=== PATIENT | female | born 1980 | race Caucasian/White ===

== ENCOUNTER 2018-06-02 02:14 | Emergency (ER) | payer OTHER, SELFPAY ==
--- NOTE | 2018-06-02 03:11 | EDPHYS ---
Physician Documentation [facility] Name: Suzi Arrington Age: 38 yrs Sex: Female : 1980 Arrival Date: 06/02/2018 Time: 02:17 Bed 18 Private MD: ED Physician Lam Slater HPI: 06/02 03:07 This 38 yrs old Female presents to ER via Ambulatory with complaints of Ear pkl Pain, Sinus Pain. 03:07 The patient presents with pain, that is acute. The complaints affect the left ear. pkl Onset: The symptoms/episode began/occurred 1 month(s) ago. Associated signs and symptoms: Pertinent positives: sinus trouble. 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 - Social history:: Smoking status: Patient/guardian denies using tobacco. - Ebola Screening: : Patient negative for fever greater than or equal to 101.5 degrees Fahrenheit, and additional compatible Ebola Virus Disease symptoms. ROS: 03:07 Eyes: Negative for injury, pain, redness, and discharge. pkl 03:07 ENT: Positive for ear pain, sinus congestion. 03:07 Neck: Negative for stiffness. 03:07 Cardiovascular: Negative for chest pain. 03:07 Respiratory: Negative for shortness of breath. 03:07 Abdomen/GI: Negative for abdominal pain, nausea, vomiting, and diarrhea. 03:07 Back: Negative for acute changes. 03:07 : Negative for urinary symptoms. 03:07 MS/extremity: Negative for acute changes. 03:07 Skin: Negative for rash. 03:07 Neuro: Negative for altered mental status. Exam: 03:07 Head/Face: Normocephalic, atraumatic. Eyes: Pupils equal round and reactive to light, pkl extra-ocular motions intact. Lids and lashes normal. Conjunctiva and sclera are non-icteric and not injected. Cornea within normal limits. Periorbital areas with no swelling, redness, or edema. 03:07 ENT: TM's: erythema, that is mild, on the left. 03:07 Neck: Exam negative for nuchal rigidity. 03:07 Chest/axilla: Exam negative for acute changes. 03:07 Cardiovascular: Rate: normal, Rhythm: regular. 03:07 Respiratory: the patient does not display signs of respiratory distress. 03:07 Abdomen/GI: Exam negative for acute changes. 03:07 Back: Exam negative for acute changes. 03:07 : Exam negative for acute changes. 03:07 Musculoskeletal/extremity: Exam is negative for acute changes. 03:07 Skin: Exam negative for rash. 03:07 Neuro: Orientation: is normal, Mentation: is normal, Cranial nerves: grossly normal, Motor: is normal. Vital Signs: 02:37 BP 141 / 99; Pulse 99; Resp 17 S; Temp 98.4(O); Pulse Ox 100% on R/A; Weight 132.9 kg jd3 (R); Height 5 ft. 5 in. (165.10 cm) (R); Pain 8/10; 02:37 Body Mass Index 48.76 (132.90 kg, 165.10 cm) jd3 MDM: 02:53 Patient medically screened. pkl 03:07 Data reviewed: vital signs, nurses notes. pkl Administered Medications: 03:12 Drug: UltRAM 50 mg Route: PO; jd3 03:20 Follow up: Response: No adverse reaction jd3 Disposition: 06/02/18 03:11 Discharged to Home. Impression: Left otitis media. Sinusitis. - Condition is Stable. - Prescriptions for Ultram 50 mg Oral Tablet - take 1 tablet by ORAL route every 8 hours As needed; 20 tablet. Cipro 500 mg Oral Tablet - take 1 tablet by ORAL route every 12 hours for 7 days; 14 tablet. - Work release form, Medication Reconciliation Form, Thank You Letter, Antibiotic Education, Prescription Opioid Use form. - Follow up: Private Physician; When: 2 - 3 days; Reason: Re-evaluation by your physician. - Problem is new. - Symptoms are unchanged. Signatures: Lam Slater MD MD pkl Jase Powell RN RN jd3 Corrections: (The following items were deleted from the chart) 03:20 03:11 06/02/2018 03:11 Discharged to Home. Impression: Left otitis media. Sinusitis. jd3 Condition is Stable. Forms are Medication Reconciliation Form, Thank You Letter, Antibiotic Education, Prescription Opioid Use. Follow up: Private Physician; When: 2 - 3 days; Reason: Re-evaluation by your physician. Problem is new. Symptoms are unchanged. pkl
--- NOTE | 2018-06-02 03:11 | ER ---
Nurse's Notes [facility] Name: Suzi Arrington Age: 38 yrs Sex: Female : 1980 Arrival Date: 06/02/2018 Time: 02:17 Bed 18 Private MD: Diagnosis: Left otitis media. Sinusitis Presentation: 06/02 02:33 Presenting complaint: Patient states: "I'm not sure if I have a sinus infection or an jd3 ear infection, but my left ear and my sinuses have been hurting, and I have had a stuffy nose making it hard to breath sometimes.". Transition of care: patient was not received from another setting of care. Onset of symptoms was June 02, 2018. Risk Assessment: Do you want to hurt yourself or someone else? Patient reports no desire to harm self or others. Initial Sepsis Screen: Does the patient meet any 2 criteria? No. Patient's initial sepsis screen is negative. Does the patient have a suspected source of infection? No. Patient's initial sepsis screen is negative. Care prior to arrival: None. 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 - Social history:: Smoking status: Patient/guardian denies using tobacco. - Ebola Screening: : Patient negative for fever greater than or equal to 101.5 degrees Fahrenheit, and additional compatible Ebola Virus Disease symptoms. Screenin:41 Abuse screen: Denies threats or abuse. Nutritional screening: No deficits noted. jd3 Tuberculosis screening: No symptoms or risk factors identified. Fall Risk Ambulatory Aid- None/Bed Rest/Nurse Assist (0 pts). Gait- Normal/Bed Rest/Wheelchair (0 pts) Mental Status- Oriented to own ability (0 pts). Total Cosme Fall Scale indicates No Risk (0-24 pts). Assessment: 02:39 General: Appears in no apparent distress. uncomfortable, Behavior is calm, cooperative, jd3 appropriate for age. Pain: Complains of pain in nose and left ear Quality of pain is described as aching. Neuro: Level of Consciousness is awake, alert, obeys commands, Oriented to person, place, time, situation. Cardiovascular: Capillary refill < 3 seconds Patient's skin is warm and dry. Respiratory: Airway is patent Respiratory effort is even, unlabored, Respiratory pattern is regular, symmetrical. GI: Abdomen is round non-distended, Patient currently denies abdominal pain. : No signs and/or symptoms were reported regarding the genitourinary system. EENT: Reports nasal congestion pain in left ear. Derm: Skin is intact, Skin is dry, Skin is normal, Skin temperature is warm. Musculoskeletal: Circulation, motion, and sensation intact. Range of motion: intact in all extremities. 03:19 Reassessment: Patient appears in no apparent distress at this time. Patient and/or jd3 family updated on plan of care and expected duration. Pain level reassessed. Patient is alert, oriented x 3, equal unlabored respirations, skin warm/dry/pink. Vital Signs: 02:37 BP 141 / 99; Pulse 99; Resp 17 S; Temp 98.4(O); Pulse Ox 100% on R/A; Weight 132.9 kg jd3 (R); Height 5 ft. 5 in. (165.10 cm) (R); Pain 8/10; 02:37 Body Mass Index 48.76 (132.90 kg, 165.10 cm) jd3 ED Course: 02:17 Patient arrived in ED. es 02:24 Jase Powell, RN is Primary Nurse. jd3 02:36 Triage completed. jd3 02:39 Arm band placed on. jd3 02:41 Patient has correct armband on for positive identification. Bed in low position. Call j light in reach. Side rails up X 1. Adult w/ patient. 02:53 Lam Slater MD is Attending Physician. pkl 03:18 No provider procedures requiring assistance completed. Patient did not have IV access jd3 during this emergency room visit. Administered Medications: 03:12 Drug: UltRAM 50 mg Route: PO; jd3 03:20 Follow up: Response: No adverse reaction jd3 Outcome: 03:11 Discharge ordered by . pkl 03:18 Discharged to home ambulatory, with family. jd3 03:18 Condition: stable 03:18 Discharge instructions given to patient, family, Instructed on discharge instructions, follow up and referral plans. medication usage, Demonstrated understanding of instructions, follow-up care, medications, Prescriptions given X 3. 03:20 Patient left the ED. jd3 Signatures: Lam Slater MD MD pkl Salyer, Edna es Davies, Jonathon RN RN jd3
[2018-06-02] MEDS ORDERED: TRAMADOL HCL 50 MG TAB ONE (03:15)
[2018-06-02 03:31] VITALS: BP 141/99; TEMP 98.4; O2SAT 100
== END 2018-06-02 03:20 | disposition home or self-care (01) ==
LOC: ER 02:14
DX: H66.92 Otitis media, unspecified, left ear (principal); J32.9 Chronic sinusitis, unspecified; I10 Essential (primary) hypertension; Z88.1 Allergy status to other antibiotic agents; Z91.048 Other nonmedicinal substance allergy status
CPT/HCPCS: 99283

== ENCOUNTER 2018-07-28 05:50 | Emergency (ER) | payer SELFPAY ==
[2018-07-28] MEDS ORDERED: ASPIRIN EC 81 MG TAB PO ONE (06:39)
[2018-07-28] MEDS ORDERED: NA CHLORIDE 0.9% 1,000 ML ONE (06:39)
[2018-07-28 06:43] LABS: Absolute Lymphocytes (CBC) 1.7 K/uL (0.7-4.9); Absolute Monocytes 0.6 K/uL (0.1-1.3); Absolute Neutrophil 4.4 K/uL (1.8-8.0); Basophils % 0.3 % (0-1.3); Eosinophils % 1.3 % (0-4.4); Lymphocytes % 24.8 % (15.3-44.8); MCH 28.7 pg (27.0-35.0); MCV 84.4 fL (80-100); MPV 7.9 fL (7.6-11.3); Monocytes % 9.2 % (3.3-12.3)
[2018-07-28 06:46] LABS: Protime INR 1.05
[2018-07-28 07:02] LABS: ALT/SGPT 16 U/L (12-78); AST/SGOT 17 U/L (15-37); Albumin 3.2 g/dL (3.4-5.0); Alkaline Phosphatase 82 U/L (45-117); BUN Blood Urea Nitrogen 12 mg/dL (7-18); Bicarbonate 25 mmol/L (21-32); Bilirubin Direct 0.1 mg/dL (0-0.2); Bilirubin Total 0.3 mg/dL (0.2-1.0); Glucose Level 84 mg/dL (74-106); Lipase 113 U/L (73-393); Magnesium 2.2 mg/dL (1.8-2.4); NT PRO-BNP 89 pg/mL (<125); Potassium 4.4 mmol/L (3.5-5.1); Protein, Total 7.1 g/dL (6.4-8.2); Sodium Level 141 mmol/L (136-145); Troponin (Emerg Dept Use Only) < 0.02 ng/mL (0.0-0.045)
--- NOTE | 2018-07-28 08:54 | RAD REPORT ---
EXAM DESCRIPTION: USExtrem Venous W Compress Bil07/28/2018 7:30 am CLINICAL HISTORY: Bilateral leg swelling elevated D-dimer COMPARISON: none FINDINGS: The common femoral, superficial femoral, popliteal and posterior tibial veins bilaterally are compressible and demonstrate augmentation. Doppler demonstrates good flow. IMPRESSION: No evidence of deep venous thrombosis involving either lower extremity.
[2018-07-28 08:58] LABS: Urine Blood 3+ (NEG); Urine Glucose NEGATIVE (NEG); Urine Protein NEGATIVE (NEG); Urine Specific Gravity 1.025 (1.005-1.030); Urine pH 5.5 (5.0-7.0)
--- NOTE | 2018-07-28 09:00 | RAD REPORT ---
EXAM DESCRIPTION: Gregoria Single View07/28/2018 7:00 am CLINICAL HISTORY: Chest pain COMPARISON: 2012 FINDINGS: The lungs appear clear of acute infiltrate. The heart is normal size IMPRESSION: No acute abnormalities displayed
--- NOTE | 2018-07-28 10:53 | RAD REPORT ---
EXAM DESCRIPTION: NM - Vent Perfusion VQ Scan - 07/28/2018 10:29 am CLINICAL HISTORY: Chest pain, shortness of breath COMPARISON: None. TECHNIQUE: The patient was administered 19.1 mCi Xenon 133 gas with posterior projection inspiration , equilibrium, and washout views obtained. The patient was then administered 7.2 mCi Tc-99m MAA label ed RBCs followed by standard 8 view protocol. FINDINGS: There is good distribution of the Xenon with no ventilation defects identified. Mild diffu se air trapping changes are evident. Perfusion images show no defects suspicious for pulmonary emboli. IMPRESSION: No perfusion defects seen. No pulmonary emboli. Mild diffuse air trapping with no focal ventilation defect.
--- NOTE | 2018-07-28 11:02 | EDPHYS ---
Physician Documentation [facility] Name: Suzi Arrington Age: 38 yrs Sex: Female : 1980 Arrival Date: 07/28/2018 Time: 05:54 Bed 14 Private MD: ED Physician Melquiades Wiley HPI: 07/28 06:22 This 38 yrs old Female presents to ER via Ambulatory with complaints of Chest gold Pain, Blurred Vision. 06:22 The patient or guardian reports chest pain that is located primarily in the anterior gold chest wall. The pain does not radiate. Associated signs and symptoms: The patient has no apparent associated signs or symptoms. The chest pain is described as aching. Modifying factors: The symptoms are alleviated by remaining still, the symptoms are aggravated by activity, cough, palpation of area, twisting torso. Severity of pain: At its worst the pain was mild in the emergency department the pain is unchanged. The patient has not experienced similar symptoms in the past. Historical: - Allergies: 06:08 Iodine; fc 06:08 Amoxicillin; fc - Home Meds: 06:08 cyclobenzaprine 5 mg Oral tab 1 tab daily prn [Active]; lisinopril 10 mg Oral tab 1 tab fc once daily [Active]; ibuprofen 800 mg Oral tab 1 tab q 8 hrs prn [Active]; prednisone 10 mg Oral tab 1 tab once daily [Active]; Proventil Inhl as needed [Active]; - PMHx: 06:08 Hypertension; Asthma; Back pain; chronic URI; fc - PSHx: 06:08 Cholecystectomy; ; fc - Immunization history:: Last tetanus immunization: unknown, Flu vaccine status is unknown. - Social history:: Smoking status: Patient/guardian denies using tobacco, Patient uses alcohol, occasionally. Patient/guardian denies using street drugs. - Ebola Screening: : Patient negative for fever greater than or equal to 101.5 degrees Fahrenheit, and additional compatible Ebola Virus Disease symptoms Patient denies exposure to infectious person Patient denies travel to an Ebola-affected area in the 21 days before illness onset. - Family history:: not pertinent. ROS: 06:22 Constitutional: Negative for fever, chills, and weight loss, Eyes: Negative for injury, gold pain, redness, and discharge, ENT: Negative for injury, pain, and discharge, Neck: Negative for injury, pain, and swelling, Respiratory: Negative for shortness of breath, cough, wheezing, and pleuritic chest pain, Abdomen/GI: Negative for abdominal pain, nausea, vomiting, diarrhea, and constipation, Back: Negative for injury and pain, : Negative for injury, bleeding, discharge, and swelling, MS/Extremity: Negative for injury and deformity, Skin: Negative for injury, rash, and discoloration, Neuro: Negative for headache, weakness, numbness, tingling, and seizure, Psych: Negative for depression, anxiety, suicide ideation, homicidal ideation, and hallucinations, Allergy/Immunology: Negative for hives, rash, and allergies, Endocrine: Negative for neck swelling, polydipsia, polyuria, polyphagia, and marked weight changes, Hematologic/Lymphatic: Negative for swollen nodes, abnormal bleeding, and unusual bruising. 06:22 Cardiovascular: Positive for chest pain. Exam: 06:22 Constitutional: This is a well developed, well nourished patient who is awake, alert, gold and in no acute distress. Head/Face: Normocephalic, atraumatic. Eyes: Pupils equal round and reactive to light, extra-ocular motions intact. Lids and lashes normal. Conjunctiva and sclera are non-icteric and not injected. Cornea within normal limits. Periorbital areas with no swelling, redness, or edema. ENT: Nares patent. No nasal discharge, no septal abnormalities noted. Tympanic membranes are normal and external auditory canals are clear. Oropharynx with no redness, swelling, or masses, exudates, or evidence of obstruction, uvula midline. Mucous membranes moist. Neck: Trachea midline, no thyromegaly or masses palpated, and no cervical lymphadenopathy. Supple, full range of motion without nuchal rigidity, or vertebral point tenderness. No Meningismus. Cardiovascular: Regular rate and rhythm with a normal S1 and S2. No gallops, murmurs, or rubs. Normal PMI, no JVD. No pulse deficits. Respiratory: Lungs have equal breath sounds bilaterally, clear to auscultation and percussion. No rales, rhonchi or wheezes noted. No increased work of breathing, no retractions or nasal flaring. Abdomen/GI: Soft, non-tender, with normal bowel sounds. No distension or tympany. No guarding or rebound. No evidence of tenderness throughout. Back: No spinal tenderness. No costovertebral tenderness. Full range of motion. Female : Normal external genitalia. Skin: Warm, dry with normal turgor. Normal color with no rashes, no lesions, and no evidence of cellulitis. MS/ Extremity: Pulses equal, no cyanosis. Neurovascular intact. Full, normal range of motion. Neuro: Awake and alert, GCS 15, oriented to person, place, time, and situation. Cranial nerves II-XII grossly intact. Motor strength 5/5 in all extremities. Sensory grossly intact. Cerebellar exam normal. Normal gait. Psych: Awake, alert, with orientation to person, place and time. Behavior, mood, and affect are within normal limits. 06:22 Chest/axilla: Inspection: normal, no acute changes, Palpation: is normal, tenderness, Axilla: are normal, Breasts: are normal. 06:22 Cardiovascular: Rate: normal, Rhythm: regular, Pulses: no pulse deficits are appreciated, Heart sounds: normal, JVD: is not appreciated. 06:22 Musculoskeletal/extremity: Extremities: all appear grossly normal, with no appreciated pain with palpation, ROM: no acute changes, Circulation is intact in all extremities. Sensation intact. Compartment Syndrome exam of affected extremity: is normal. DVT Exam: no pain, no swelling, no tenderness, negative Homans' sign noted on exam, no appreciated bluish discoloration, no erythema, no increased warmth. 07:07 ENT: Mouth: Oral mucosa: normal, pink and intact, moist, Gums: reddened, on the upper gold right second molar, upper right first molar and upper right second bicuspid, recent tooth extraction. Vital Signs: 05:55 BP 120 / 75; Pulse 77; Resp 20; Temp 98.3(O); Pulse Ox 97% on R/A; Weight 135.17 kg fc (R); Height 5 ft. 5 in. (165.10 cm) (R); Pain 8/10; 08:00 BP 146 / 95; Pulse 58; Resp 16; Pulse Ox 99% on R/A; Pain 0/10; hb 09:13 BP 149 / 96; Pulse 60; Resp 17; Pulse Ox 100% on R/A; Pain 0/10; hb 11:00 BP 142 / 10; Pulse 68; Resp 16; Pulse Ox 100% on R/A; Pain 0/10; hb 05:55 Body Mass Index 49.59 (135.17 kg, 165.10 cm) MDM: 06:03 Patient medically screened. [facility] 06:31 Data reviewed: vital signs, nurses notes, lab test result(s), EKG, radiologic studies, gold plain films. 07:30 Data interpreted: Pulse oximetry: on room air is 97 %. Interpretation: normal. [facility] 11:01 Counseling: I had a detailed discussion with the patient and/or guardian regarding: the [facility] historical points, exam findings, and any diagnostic results supporting the discharge/admit diagnosis, lab results, radiology results, the need for outpatient follow up, a rn unit manager, a family practitioner, to return to the emergency department if symptoms worsen or persist or if there are any questions or concerns that arise at home. 07/28 06:20 Order name: Basic Metabolic Panel; Complete Time: 07:05 [facility] 07/28 06:20 Order name: CBC with Diff; Complete Time: 07:05 [facility] 07/28 06:20 Order name: LFT's; Complete Time: 07:05 [facility] 07/28 06:20 Order name: Magnesium; Complete Time: 07:05 [facility] 07/28 06:20 Order name: NT PRO-BNP; Complete Time: 07:05 [facility] 07/28 06:20 Order name: PT-INR; Complete Time: 07:05 [facility] 07/28 06:20 Order name: Troponin (emerg Dept Use Only); Complete Time: 07:05 [facility] 07/28 06:20 Order name: XRAY Chest (1 view); Complete Time: 09:02 [facility] 07/28 06:20 Order name: Lipase; Complete Time: 07:05 [facility] 07/28 06:20 Order name: D-Dimer; Complete Time: 07:05 [facility] 07/28 07:00 Order name: VQ scan (Nuclear Medicine); Complete Time: 11:01 07/28 07:06 Order name: Troponin (emerg Dept Use Only); Complete Time: 09:02 [facility] 07/28 08:36 Order name: Urine Dipstick--Ancillary (enter results); Complete Time: 09:02 07/28 08:36 Order name: Urine --Ancillary (enter results); Complete Time: 09:02 07/28 06:20 Order name: EKG; Complete Time: 06:21 [facility] 07/28 06:20 Order name: Cardiac monitoring; Complete Time: 06:25 [facility] 07/28 06:20 Order name: EKG - Nurse/Tech; Complete Time: 06:25 [facility] 07/28 06:20 Order name: IV Saline Lock; Complete Time: 06:25 [facility] 07/28 06:20 Order name: Labs collected and sent; Complete Time: 06:38 [facility] 07/28 06:20 Order name: O2 Per Protocol; Complete Time: 06:25 [facility] 07/28 06:20 Order name: O2 Sat Monitoring; Complete Time: 06:26 [facility] 07/28 06:20 Order name: Urine Dipstick-Ancillary (obtain specimen); Complete Time: 08:50 [facility] 07/28 06:20 Order name: Urine Test (obtain specimen); Complete Time: 08:50 [facility] 07/28 07:00 Order name: US Extremity Venous W Compression Spike; Complete Time: 09:02 07/28 07:06 Order name: Repeat Cardiac Enzymes at: repeat at 8am; Complete Time: 08:50 [facility] Administered Medications: 06:30 Drug: NS 0.9% 1000 ml Route: IV; Rate: 1 bolus; Site: right antecubital; cc3 08:00 Follow up: Response: No adverse reaction; IV Status: Completed infusion hb 06:30 Drug: Aspirin 162 mg Route: PO; cc3 07:20 Follow up: Response: No adverse reaction hb Disposition: 14:35 Co-signature as Attending Physician, Melquiades Wiley MD I agree with the assessment and [facility] plan of care. Disposition: 07/28/18 11:02 Discharged to Home. Impression: Chest pain, unspecified, Obesity, unspecified, Other chest pain, Dental caries, unspecified - recent extraction. - Condition is Stable. - Discharge Instructions: Nonspecific Chest Pain, Chest Wall Pain, Dental Pain, Obesity, Adult, Chest Wall Pain, [id number], Nonspecific Chest Pain, [id number], Aspirin and Your Heart, Dental Extraction, Care After, Obesity, Adult, [id number]. - Prescriptions for Clindamycin HCl 300 mg Oral Capsule - take 1 capsule by ORAL route every 6 hours for 7 days; 28 capsule. - Medication Reconciliation Form, Thank You Letter, Antibiotic Education, Prescription Opioid Use form. - Follow up: Private Physician; When: 2 - 3 days; Reason: Recheck today's complaints, Continuance of care, Re-evaluation by your physician. - Problem is new. - Symptoms have improved. Signatures: Dispatcher [employer] EDMelquiades Whittington MD MD cha Chretien, Felicia, RN RN Magdiel Parker PA PA [id number] Danitza Miller RN RN Lakeisha Oseguera cc3 Corrections: (The following items were deleted from the chart) 11:26 11:02 07/28/2018 11:02 Discharged to Home. Impression: Chest pain, unspecified; hb Obesity, unspecified; Other chest pain; Dental caries, unspecified - recent extraction. Condition is Stable. Discharge Instructions: Nonspecific Chest Pain, Chest Wall Pain, Obesity, Adult, Chest Wall Pain, [id number], Nonspecific Chest Pain, [id number], Aspirin and Your Heart, Dental Pain, Dental Extraction, Care After, Obesity, Adult, [id number]. Prescriptions for Clindamycin HCl 300 mg Oral Capsule - take 1 capsule by ORAL route every 6 hours for 7 days; 28 capsule. and Forms are Medication Reconciliation Form, Thank You Letter, Antibiotic Education, Prescription Opioid Use. Follow up: Private Physician; When: 2 - 3 days; Reason: Recheck today's complaints, Continuance of care, Re-evaluation by your physician. Problem is new. Symptoms have improved. [id number]
--- NOTE | 2018-07-28 11:02 | ER ---
Nurse's Notes [facility] Name: Suzi Arrington Age: 38 yrs Sex: Female : 1980 Arrival Date: 07/28/2018 Time: 05:54 Bed 14 Private MD: Diagnosis: Chest pain, unspecified;Obesity, unspecified;Other chest pain;Dental caries, unspecified-recent extraction Presentation: 07/28 05:55 Presenting complaint: Patient states: that she had mouth surg on Thursday and started fc taking Ibuprofen 800 mg that night. Right after that she started to have chest pain on and off. Yesterday was sent home from work when she took it and it also caused her to have some blurry vision. States she has had this same pain before and was told it was stress related. Pain continues to be on and off. She also has shortness of breath but always has upper resp infections which she was just treated for last month with Amoxicillin. Denies any nausea or vomiting. Transition of care: patient was not received from another setting of care. Onset of symptoms was July 26, 2018. Risk Assessment: Do you want to hurt yourself or someone else? Patient reports no desire to harm self or others. Initial Sepsis Screen: Does the patient meet any 2 criteria? No. Patient's initial sepsis screen is negative. Does the patient have a suspected source of infection? No. Patient's initial sepsis screen is negative. Care prior to arrival: None. 05:55 Method Of Arrival: Ambulatory 05:55 Acuity: CARLITOS 3 Triage Assessment: 06:00 General: Appears in no apparent distress. comfortable, Behavior is calm, cooperative, cc3 appropriate for age. Pain: Complains of pain in chest pain Quality of pain is described as aching. EENT: No signs and/or symptoms were reported regarding the EENT system. Neuro: Level of Consciousness is awake, alert, obeys commands, Oriented to person, place, time, situation, Appropriate for age. Cardiovascular: Reports chest pain, since a couple of days. Cardiovascular: Patient's skin is warm and dry. Respiratory: Airway is patent Respiratory effort is even, unlabored, Respiratory pattern is regular, symmetrical. GI: Abdomen is round obese. : No signs and/or symptoms were reported regarding the genitourinary system. Derm: No signs and/or symptoms reported regarding the dermatologic system. Musculoskeletal: Circulation, motion, and sensation intact. Range of motion: intact in all extremities. Historical: - Allergies: 06:08 Iodine; fc 06:08 Amoxicillin; fc - Home Meds: 06:08 cyclobenzaprine 5 mg Oral tab 1 tab daily prn [Active]; lisinopril 10 mg Oral tab 1 tab fc once daily [Active]; ibuprofen 800 mg Oral tab 1 tab q 8 hrs prn [Active]; prednisone 10 mg Oral tab 1 tab once daily [Active]; Proventil Inhl as needed [Active]; - PMHx: 06:08 Hypertension; Asthma; Back pain; chronic URI; fc - PSHx: 06:08 Cholecystectomy; ; fc - Immunization history:: Last tetanus immunization: unknown, Flu vaccine status is unknown. - Social history:: Smoking status: Patient/guardian denies using tobacco, Patient uses alcohol, occasionally. Patient/guardian denies using street drugs. - Ebola Screening: : Patient negative for fever greater than or equal to 101.5 degrees Fahrenheit, and additional compatible Ebola Virus Disease symptoms Patient denies exposure to infectious person Patient denies travel to an Ebola-affected area in the 21 days before illness onset. - Family history:: not pertinent. Screenin:55 Abuse screen: Denies threats or abuse. Nutritional screening: No deficits noted. Tuberculosis screening: No symptoms or risk factors identified. Fall Risk None identified. Assessment: 06:00 General: see triage assessment. cc3 07:00 Reassessment: Patient appears in no apparent distress at this time. Patient and/or cc3 family updated on plan of care and expected duration. Pain level reassessed. Patient is alert, oriented x 3, equal unlabored respirations, skin warm/dry/pink. HAnded over to morning shift for continuity of care. 08:00 Reassessment: Patient appears in no apparent distress at this time. Patient is alert, hb oriented x 3, equal unlabored respirations, skin warm/dry/pink. Patient denies pain at this time. Patient states symptoms have improved. 09:00 Reassessment: Patient appears in no apparent distress at this time. No changes from hb previously documented assessment. Patient and/or family updated on plan of care and expected duration. Pain level reassessed. Patient is alert, oriented x 3, equal unlabored respirations, skin warm/dry/pink. 10:00 Reassessment: Patient appears in no apparent distress at this time. Patient and/or hb family updated on plan of care and expected duration. Pain level reassessed. Patient is alert, oriented x 3, equal unlabored respirations, skin warm/dry/pink. Patient states symptoms have improved. 11:00 Reassessment: Patient appears in no apparent distress at this time. No changes from hb previously documented assessment. Patient and/or family updated on plan of care and expected duration. Pain level reassessed. Patient is alert, oriented x 3, equal unlabored respirations, skin warm/dry/pink. Vital Signs: 05:55 BP 120 / 75; Pulse 77; Resp 20; Temp 98.3(O); Pulse Ox 97% on R/A; Weight 135.17 kg fc (R); Height 5 ft. 5 in. (165.10 cm) (R); Pain 8/10; 08:00 BP 146 / 95; Pulse 58; Resp 16; Pulse Ox 99% on R/A; Pain 0/10; hb 09:13 BP 149 / 96; Pulse 60; Resp 17; Pulse Ox 100% on R/A; Pain 0/10; hb 11:00 BP 142 / 10; Pulse 68; Resp 16; Pulse Ox 100% on R/A; Pain 0/10; hb 05:55 Body Mass Index 49.59 (135.17 kg, 165.10 cm) ED Course: 05:54 Patient arrived in ED. es 05:55 Arm band placed on Patient placed in an exam room, on a stretcher. fc 05:55 Patient has correct armband on for positive identification. Placed in gown. Bed in low fc position. Call light in reach. monitor car operator on. Pulse ox on. NIBP on. 05:55 No provider procedures requiring assistance completed. Patient maintains SpO2 fc saturation greater than 95% on room air. 05:57 Lakeisha Oseguera is Primary Nurse. cc3 06:02 Melquiades Wiley MD is Attending Physician. gold 06:04 Triage completed. fc 06:25 Inserted saline lock: 20 gauge in right antecubital area, using aseptic technique. cc3 Blood collected. inserted by digital tech Langley. 06:55 X-ray completed. Portable x-ray completed in exam room. Patient tolerated procedure jb2 well. 06:58 Notified ED physician of a critical lab result(s). d dimer of 681. 07:00 XRAY Chest (1 view) In Process Unspecified. EDMS 07:00 Report given to DEWAYNE Bosch. cc3 07:22 Ultrasound completed. hr 07:26 Magdiel Hankins PA is PHCP. jr8 07:28 US Extremity Venous W Compression Spike In Process Unspecified. EDMS 08:02 Danitza Miller, RN is Primary Nurse. hb 08:59 Urine collected: clean catch specimen, clear. [facility] 10:29 VQ scan (Nuclear Medicine) In Process Unspecified. EDMS 10:29 Note: VQ SCAN COMPLETE. PT TOLERATED SCAN WELL. NO CHANGE. PT RETURNED TO ED. NURSE ls3 NOTIFIED. SIDNEY ORO(N), PATIENT SERVICE REP. 11:20 IV discontinued, intact, bleeding controlled, No redness/swelling at site. Pressure hb dressing applied. Administered Medications: 06:30 Drug: NS 0.9% 1000 ml Route: IV; Rate: 1 bolus; Site: right antecubital; cc3 08:00 Follow up: Response: No adverse reaction; IV Status: Completed infusion hb 06:30 Drug: Aspirin 162 mg Route: PO; cc3 07:20 Follow up: Response: No adverse reaction hb Outcome: 11:02 Discharge ordered by . asya 11:20 Discharged to home ambulatory. hb 11:20 Condition: stable 11:20 Discharge instructions given to patient, Instructed on discharge instructions, follow up and referral plans. medication usage, Demonstrated understanding of instructions, follow-up care, medications, Prescriptions given X 2. 11:26 Patient left the ED. hb Signatures: Dispatcher [employer] EDIL Melquiades Wiley MD MD cha Salyer, Edna es Buechter, Jesse jb2 Delicia Hernandez hr Bia Harper RN RN Magdiel Hankins PA PA jr8 Danitza Miller RN RN hb Martinez, Maria [facility] Lakeisha Oseguera cc3 Kelley Maria ls3 Corrections: (The following items were deleted from the chart) 08:04 08:00 Reassessment: Patient appears in no apparent distress at this time. Patient hb and/or family updated on plan of care and expected duration. Pain level reassessed. Patient is alert, oriented x 3, equal unlabored respirations, skin warm/dry/pink. hb
[2018-07-28] MEDS ORDERED: MAGNE/ALUM HYDROXD 30 ML UCUP ONE (11:19)
[2018-07-28] MEDS ORDERED: LIDOCAINE VISCOUS 2% SOLN 15 ML UDC ONE (11:20)
[2018-07-28 11:40] VITALS: TEMP 98.3
[2018-07-28 11:42] VITALS: O2SAT 100
[2018-07-28 11:43] VITALS: BP 142/10
--- NOTE | 2018-07-28 13:32 | EKG ---
Test Date: 2018-07-28 Test Time: 06:05:53 Food And Beverage Associate: PERET MEASUREMENT RESULTS: Intervals: Rate: 71 OH: 152 QRSD: 78 QT: 384 QTc: 417 [place]: P: 29 OH: 152 QRS: 16 T: 25 INTERPRETIVE STATEMENTS: Normal sinus rhythm Normal ECG Electronically Signed On 07-28-18 13:31:17 [employer] SOLUTION ARCHITECT by Santy Ponce
== END 2018-07-28 11:26 | disposition home or self-care (01) ==
LOC: ER 05:50
DX: R07.89 Other chest pain (principal); K02.9 Dental caries, unspecified; Z98.818 Other dental procedure status; E66.9 Obesity, unspecified; I10 Essential (primary) hypertension; J45.909 Unspecified asthma, uncomplicated; Z88.1 Allergy status to other antibiotic agents; Z91.048 Other nonmedicinal substance allergy status
CPT/HCPCS: 36415; 71045; 78582; 80048; 80076; 81003; 81025; 83690; 83735; 83880; 84484; 85025; 85379; 85610; 93005; 93970; 96360; 99285; A9540; A9558; J7030

== ENCOUNTER 2018-09-08 19:44 | Emergency (ER) | payer OTHER, SELFPAY ==
[2018-09-08] MEDS ORDERED: MORPHINE 4 MG/ML SYR ONE (21:55)
[2018-09-08] MEDS ORDERED: AMOX/K CLAV 875 MG TAB ONE (21:56)
[2018-09-08] MEDS ORDERED: ONDANSETRON 4 MG (ODT) TAB ONE (21:56)
--- NOTE | 2018-09-08 22:41 | EDPHYS ---
Physician Documentation [facility] Name: Suzi Arrington Age: 38 yrs Sex: Female : 1980 Arrival Date: 09/08/2018 Time: 19:47 Bed 28 Private MD: ED Physician Melquiades Wiley HPI: 09/08 22:42 This 38 yrs old Female presents to ER via Ambulatory with complaints of jr8 Toothache. 22:42 The patient presents with pain. Onset: The symptoms/episode began/occurred acutely, jr8 today. Duration: The symptoms are continuous. Modifying factors: The symptoms are alleviated by nothing, the symptoms are aggravated by air, talking. Associated signs and symptoms: The patient has no apparent associated signs or symptoms. Severity of symptoms: At their worst the symptoms were moderate, in the emergency department the symptoms are unchanged. It is unknown whether or not the patient has had similar symptoms in the past. The patient has been recently seen by a physician:. Patient had recent extraction of tooth. Had been fine on pain meds until today. Increase in pain that is not going away . Historical: - Allergies: 20:15 Iodine; aj1 20:15 Motrin; aj1 - Home Meds: 20:15 lisinopril 10 mg Oral tab 1 tab once daily [Active]; aj1 - PMHx: 20:15 Asthma; Back pain; chronic URI; Hypertension; aj1 - Immunization history:: Flu vaccine is not up to date. - Social history:: Smoking status: Patient/guardian denies using tobacco. - Ebola Screening: : Patient denies travel to an Ebola-affected area in the 21 days before illness onset. ROS: 22:42 Eyes: Negative for injury, pain, redness, and discharge, Neck: Negative for injury, jr8 pain, and swelling, Cardiovascular: Negative for chest pain, palpitations, and edema, Respiratory: Negative for shortness of breath, cough, wheezing, and pleuritic chest pain, Abdomen/GI: Negative for abdominal pain, nausea, vomiting, diarrhea, and constipation, Back: Negative for injury and pain, MS/Extremity: Negative for injury and deformity, Skin: Negative for injury, rash, and discoloration, Neuro: Negative for headache, weakness, numbness, tingling, and seizure. 22:42 ENT: Positive for dental pain. Exam: 22:42 Head/Face: Normocephalic, atraumatic. Eyes: Pupils equal round and reactive to light, jr8 extra-ocular motions intact. Lids and lashes normal. Conjunctiva and sclera are non-icteric and not injected. Cornea within normal limits. Periorbital areas with no swelling, redness, or edema. Neck: Trachea midline, no thyromegaly or masses palpated, and no cervical lymphadenopathy. Supple, full range of motion without nuchal rigidity, or vertebral point tenderness. No Meningismus. Cardiovascular: Regular rate and rhythm with a normal S1 and S2. No gallops, murmurs, or rubs. Normal PMI, no JVD. No pulse deficits. Respiratory: Lungs have equal breath sounds bilaterally, clear to auscultation and percussion. No rales, rhonchi or wheezes noted. No increased work of breathing, no retractions or nasal flaring. Skin: Warm, dry with normal turgor. Normal color with no rashes, no lesions, and no evidence of cellulitis. MS/ Extremity: Pulses equal, no cyanosis. Neurovascular intact. Full, normal range of motion. Neuro: Awake and alert, GCS 15, oriented to person, place, time, and situation. Cranial nerves II-XII grossly intact. Motor strength 5/5 in all extremities. Sensory grossly intact. Cerebellar exam normal. Normal gait. 22:42 ENT: Exam is negative for earache, ear discharge, TM abnormalities, nasal discharge, enlarged tonsils, pharyngitis, exudate, swelling and mild erythema noted to left lower jaw where 1 molar would be. Vital Signs: 20:15 BP 133 / 99; Pulse 87; Resp 18; Temp 97.2; Pulse Ox 100% on R/A; Weight 136.08 kg (R); aj1 Height 5 ft. 5 in. (165.10 cm) (R); Pain 9/10; 20:15 Body Mass Index 49.92 (136.08 kg, 165.10 cm) aj1 MDM: 20:43 Patient medically screened. jr8 22:40 Data reviewed: vital signs, nurses notes, and as a result, I will discharge patient. jr8 Data interpreted: Pulse oximetry: on room air is 100 %. Interpretation: normal. Counseling: I had a detailed discussion with the patient and/or guardian regarding: the historical points, exam findings, and any diagnostic results supporting the discharge/admit diagnosis, the need for outpatient follow up, a dentist, to return to the emergency department if symptoms worsen or persist or if there are any questions or concerns that arise at home. Administered Medications: 21:45 Drug: Augmentin 875 mg Route: PO; rv 21:45 Drug: morphine 4 mg Route: IM; Site: left deltoid; rv 21:45 Drug: Zofran 4 mg Route: PO; rv Disposition: 09/09 06:48 Co-signature as Attending Physician, Melquiades Wiley MD I agree with the assessment and gold plan of care. Disposition: 09/08/18 22:40 Discharged to Home. Impression: Dentalgia. - Condition is Stable. - Discharge Instructions: Dental Abscess. - Prescriptions for Augmentin 875- 125 mg Oral Tablet - take 1 tablet by ORAL route every 12 hours for 10 days; 20 tablet. - Medication Reconciliation Form, Thank You Letter, Antibiotic Education, Prescription Opioid Use form. - Follow up: Private Physician; When: 2 - 3 days; Reason: Recheck today's complaints, Continuance of care, Re-evaluation by your physician. - Problem is new. - Symptoms have improved. Signatures: Catarina Villaseñor RN RN aj1 Melquiades Wiley MD MD cha Roszak, Josh, PA PA jr8 Tristian Raymond RN RN rv Corrections: (The following items were deleted from the chart) 09/08 22:50 22:40 09/08/2018 22:40 Discharged to Home. Impression: Dentalgia. Condition is Stable. rv Forms are Medication Reconciliation Form, Thank You Letter, Antibiotic Education, Prescription Opioid Use. Follow up: Private Physician; When: 2 - 3 days; Reason: Recheck today's complaints, Continuance of care, Re-evaluation by your physician. Problem is new. Symptoms have improved. jr8
--- NOTE | 2018-09-08 22:41 | ER ---
Nurse's Notes [facility] Name: Suzi Arrington Age: 38 yrs Sex: Female : 1980 Arrival Date: 09/08/2018 Time: 19:47 Bed 28 Private MD: Diagnosis: Dentalgia Presentation: 09/08 20:13 Presenting complaint: Patient states: "I had teeth pulled on Thursday and it started aj1 shooting pain all the way up and down and I have an open wound in my mouth." Denies fever at home. States that she has been taking Tylenol #3 at home with no relief. Transition of care: patient was not received from another setting of care. Onset of symptoms was September 07, 2010. Risk Assessment: Do you want to hurt yourself or someone else? Patient reports no desire to harm self or others. Initial Sepsis Screen: Does the patient meet any 2 criteria? No. Patient's initial sepsis screen is negative. Does the patient have a suspected source of infection? No. Patient's initial sepsis screen is negative. Care prior to arrival: None. 20:13 Method Of Arrival: Ambulatory aj1 20:13 Acuity: CARLITOS 4 aj1 Triage Assessment: 20:15 General: Appears in no apparent distress. uncomfortable, Behavior is calm, cooperative, aj1 appropriate for age. Pain: Complains of pain in mouth Pain currently is 9 out of 10 on a pain scale. EENT: Reports pain in mouth. Neuro: Level of Consciousness is awake, alert, obeys commands. Cardiovascular: Patient's skin is warm and dry. Respiratory: Airway is patent Respiratory effort is even, unlabored, Respiratory pattern is regular, symmetrical. Historical: - Allergies: 20:15 Iodine; aj1 20:15 Motrin; aj1 - Home Meds: 20:15 lisinopril 10 mg Oral tab 1 tab once daily [Active]; aj1 - PMHx: 20:15 Asthma; Back pain; chronic URI; Hypertension; aj1 - Immunization history:: Flu vaccine is not up to date. - Social history:: Smoking status: Patient/guardian denies using tobacco. - Ebola Screening: : Patient denies travel to an Ebola-affected area in the 21 days before illness onset. Screenin:56 Abuse screen: Denies threats or abuse. Denies injuries from another. Nutritional rv screening: No deficits noted. Tuberculosis screening: No symptoms or risk factors identified. Fall Risk None identified. Assessment: 20:54 General: Appears uncomfortable, Behavior is calm, cooperative. Pain: Complains of pain rv in LEFT SIDE OF THE FACE. Neuro: Level of Consciousness is awake, alert, obeys commands, Oriented to person, place, time, situation. Cardiovascular: Capillary refill < 3 seconds. Respiratory: Airway is patent. GI: No signs and/or symptoms were reported involving the gastrointestinal system. : No signs and/or symptoms were reported regarding the genitourinary system. EENT: No signs and/or symptoms were reported regarding the EENT system. Derm: Skin is intact. Musculoskeletal: Reports pain in LEFT SIDE OF THE FACE. Vital Signs: 20:15 BP 133 / 99; Pulse 87; Resp 18; Temp 97.2; Pulse Ox 100% on R/A; Weight 136.08 kg (R); aj1 Height 5 ft. 5 in. (165.10 cm) (R); Pain 9/10; 20:15 Body Mass Index 49.92 (136.08 kg, 165.10 cm) aj1 ED Course: 19:47 Patient arrived in ED. es 20:15 Triage completed. aj1 20:15 Arm band placed on Patient placed in waiting room, Patient notified of wait time. aj1 20:43 Magdiel Hankins PA is PHCP. jr8 20:43 Melquiades Wiley MD is Attending Physician. jr8 20:56 Patient has correct armband on for positive identification. Bed in low position. Call rv light in reach. Side rails up X 1. Pulse ox on. NIBP on. 22:47 No provider procedures requiring assistance completed. Patient did not have IV access rv during this emergency room visit. Administered Medications: 21:45 Drug: Augmentin 875 mg Route: PO; rv 21:45 Drug: morphine 4 mg Route: IM; Site: left deltoid; rv 21:45 Drug: Zofran 4 mg Route: PO; rv Outcome: 22:40 Discharge ordered by . jr8 22:47 Discharged to home ambulatory. rv 22:47 Condition: good 22:47 Discharge instructions given to patient, Instructed on discharge instructions, follow up and referral plans. medication usage, Demonstrated understanding of instructions, follow-up care, medications. 22:50 Patient left the ED. rv Signatures: Catarina Villaseñor RN RN aj1 Promise Ragland Josh, PA PA jr8 Tristian Raymond RN RN rv
[2018-09-08 22:56] VITALS: BP 133/99; TEMP 97.2; O2SAT 100
== END 2018-09-08 22:50 | disposition home or self-care (01) ==
LOC: ER 19:44
DX: K08.89 Other specified disorders of teeth and supporting structures (principal); I10 Essential (primary) hypertension; Z88.6 Allergy status to analgesic agent; Z91.048 Other nonmedicinal substance allergy status
CPT/HCPCS: 96372; 99283

== ENCOUNTER 2018-10-31 00:32 | Emergency (ER) | payer OTHER ==
--- NOTE | 2018-10-31 01:08 | ER ---
Nurse's Notes [facility] Name: Suzi Arrington Age: 38 yrs Sex: Female : 1980 Arrival Date: 10/31/2018 Time: 00:35 Bed 7 Private MD: Diagnosis: Contact Dermatitis Presentation: 10/31 00:46 Presenting complaint: Patient states: Rash to forearms and lower abdomen; States using lp1 new dish soap at work and rash that began on 10/29/18; States similar reaction when using Samantha dish soap; Complaint of itching and burning. Transition of care: patient was not received from another setting of care. Onset: The symptoms/episode began/occurred 2 day(s) ago. Anaphylaxis evaluation, no signs or symptoms of anaphylaxis were noted. Onset of symptoms was October 29, 2018. Risk Assessment: Do you want to hurt yourself or someone else? Patient reports no desire to harm self or others. Initial Sepsis Screen: Does the patient meet any 2 criteria? No. Patient's initial sepsis screen is negative. Does the patient have a suspected source of infection? No. Patient's initial sepsis screen is negative. Care prior to arrival: None. 00:46 Method Of Arrival: Ambulatory lp1 00:46 Acuity: CARLITOS 5 lp1 Triage Assessment: 00:49 General: Appears in no apparent distress. comfortable, Behavior is calm. Pain: Denies lp1 pain. Respiratory: Respiratory effort is even, unlabored. 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 - Social history:: Smoking status: Patient/guardian denies using tobacco. - Ebola Screening: : No symptoms or risks identified at this time. Screenin:49 Abuse screen: Denies threats or abuse. Denies injuries from another. Nutritional lp1 screening: No deficits noted. Tuberculosis screening: No symptoms or risk factors identified. Fall Risk None identified. Assessment: 01:14 General: Appears uncomfortable, Behavior is calm, cooperative, Pt states "I don't want ed1 to take any medication here because it will make me sleepy.". Pain: Denies pain. Neuro: Level of Consciousness is awake, alert, obeys commands, Oriented to person, place, time, situation. Cardiovascular: Denies chest pain, Heart tones S1 S2 present. Respiratory: Airway is patent Respiratory effort is even, unlabored, Respiratory pattern is regular, symmetrical, Breath sounds are clear bilaterally. Denies cough, shortness of breath. GI: No signs and/or symptoms were reported involving the gastrointestinal system. : No signs and/or symptoms were reported regarding the genitourinary system. EENT: No signs and/or symptoms were reported regarding the EENT system. Derm: Skin is intact, is healthy with good turgor, Skin is dry, Skin is normal, Skin temperature is warm Reports itching. Musculoskeletal: Circulation, motion, and sensation intact. Vital Signs: 00:49 BP 124 / 91; Pulse 90; Resp 18; Temp 97.8(TE); Pulse Ox 97% on R/A; Weight 131.54 kg; lp1 Height 5 ft. 5 in. (165.10 cm); Pain 0/10; 00:49 Body Mass Index 48.26 (131.54 kg, 165.10 cm) lp1 ED Course: 00:35 Patient arrived in ED. es 00:38 Prisca Blair, DEWAYNE is Primary Nurse. ed1 00:38 Lam Slater MD is Attending Physician. pkl 00:48 Triage completed. lp1 00:49 Arm band placed on left wrist. lp1 01:14 Patient has correct armband on for positive identification. ed1 01:14 No provider procedures requiring assistance completed. Patient did not have IV access ed1 during this emergency room visit. Administered Medications: No medications were administered Outcome: 01:08 Discharge ordered by . pkl 01:14 Discharged to home ambulatory. ed1 01:14 Condition: good 01:14 Discharge instructions given to patient, Instructed on discharge instructions, follow up and referral plans. medication usage, Demonstrated understanding of instructions, follow-up care, medications, Prescriptions given X 3 handwritten prescriptions written 01:17 Patient left the ED. ed1 Signatures: Lam Slater MD MD pkl Salyer, Edna es Riggs, Erika RN RN ed1 Vilma Armendariz RN RN lp1
--- NOTE | 2018-10-31 01:09 | EDPHYS ---
Physician Documentation [facility] Name: Suzi Arrington Age: 38 yrs Sex: Female : 1980 Arrival Date: 10/31/2018 Time: 00:35 Bed 7 Private MD: ED Physician Lam Slater HPI: 10/31 01:01 This 38 yrs old Female presents to ER via Ambulatory with complaints of Rash, pkl Itching. 01:01 The patient's rash thought to be caused by an unknown cause. The rash is located on the pkl both forearms and lower abdomen. The rash can be described as macular. Onset: The symptoms/episode began/occurred 2 day(s) ago. Associated signs and symptoms: Pertinent positives: itching. Patient said she has similar reaction when using Samantha dish soap. 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 - Social history:: Smoking status: Patient/guardian denies using tobacco. - Ebola Screening: : No symptoms or risks identified at this time. ROS: 01:01 Eyes: Negative for injury, pain, redness, and discharge, ENT: Negative for injury, pkl pain, and discharge, Neck: Negative for injury, pain, and swelling, Cardiovascular: Negative for chest pain, palpitations, and edema, Respiratory: Negative for shortness of breath, cough, wheezing, and pleuritic chest pain, Abdomen/GI: Negative for abdominal pain, nausea, vomiting, diarrhea, and constipation, Back: Negative for injury and pain, : Negative for injury, bleeding, discharge, and swelling, MS/Extremity: Negative for injury and deformity. 01:01 Skin: Positive for rash, of the both forearms and lower abdomen. : Neuro: Negative for altered mental status. Exam: : Head/Face: Normocephalic, atraumatic. Eyes: Pupils equal round and reactive to light, pkl extra-ocular motions intact. Lids and lashes normal. Conjunctiva and sclera are non-icteric and not injected. Cornea within normal limits. Periorbital areas with no swelling, redness, or edema. ENT: Nares patent. No nasal discharge, no septal abnormalities noted. Tympanic membranes are normal and external auditory canals are clear. Oropharynx with no redness, swelling, or masses, exudates, or evidence of obstruction, uvula midline. Mucous membranes moist. Neck: Trachea midline, no thyromegaly or masses palpated, and no cervical lymphadenopathy. Supple, full range of motion without nuchal rigidity, or vertebral point tenderness. No Meningismus. Chest/axilla: Normal chest wall appearance and motion. Nontender with no deformity. No lesions are appreciated. Cardiovascular: Regular rate and rhythm with a normal S1 and S2. No gallops, murmurs, or rubs. Normal PMI, no JVD. No pulse deficits. Respiratory: Lungs have equal breath sounds bilaterally, clear to auscultation and percussion. No rales, rhonchi or wheezes noted. No increased work of breathing, no retractions or nasal flaring. Abdomen/GI: Soft, non-tender, with normal bowel sounds. No distension or tympany. No guarding or rebound. No evidence of tenderness throughout. Back: No spinal tenderness. No costovertebral tenderness. Full range of motion. MS/ Extremity: Pulses equal, no cyanosis. Neurovascular intact. Full, normal range of motion. Neuro: Awake and alert, GCS 15, oriented to person, place, time, and situation. Cranial nerves II-XII grossly intact. Motor strength 5/5 in all extremities. Sensory grossly intact. Cerebellar exam normal. Normal gait. : Skin: rash can be described as papular, on the both forearms and lower abdomen. Vital Signs: 00:49 BP 124 / 91; Pulse 90; Resp 18; Temp 97.8(TE); Pulse Ox 97% on R/A; Weight 131.54 kg; lp1 Height 5 ft. 5 in. (165.10 cm); Pain 0/10; 00:49 Body Mass Index 48.26 (131.54 kg, 165.10 cm) lp1 MDM: 00:38 Patient medically screened. pkl 01:01 Data reviewed: vital signs, nurses notes. pkl Administered Medications: No medications were administered Disposition: 10/31/18 01:08 Discharged to Home. Impression: Contact Dermatitis. - Condition is Stable. - Medication Reconciliation Form, Thank You Letter, Antibiotic Education, Prescription Opioid Use form. - Follow up: Private Physician; When: 2 - 3 days; Reason: Re-evaluation by your physician. - Problem is new. - Symptoms are unchanged. Signatures: Lam Slater MD MD pkl Prisca Blair RN RN ed1 Vilma Armendariz RN RN lp1 Corrections: (The following items were deleted from the chart) 01:17 01:08 10/31/2018 01:08 Discharged to Home. Impression: Contact Dermatitis. Condition is ed1 Stable. Forms are Medication Reconciliation Form, Thank You Letter, Antibiotic Education, Prescription Opioid Use. Follow up: Private Physician; When: 2 - 3 days; Reason: Re-evaluation by your physician. Problem is new. Symptoms are unchanged. pkl
[2018-10-31 01:21] VITALS: BP 124/91; TEMP 97.8; O2SAT 97
== END 2018-10-31 01:17 | disposition home or self-care (01) ==
LOC: ER 00:32
DX: L25.9 Unspecified contact dermatitis, unspecified cause (principal); I10 Essential (primary) hypertension; J45.909 Unspecified asthma, uncomplicated; Z79.899 Other long term (current) drug therapy
CPT/HCPCS: 99282

== ENCOUNTER 2018-12-31 17:55 | Emergency (ER) | payer OTHER, SELFPAY ==
[2018-12-31 19:38] LABS: Absolute Monocytes 0.6 K/uL (0.1-1.3); Absolute Neutrophil 7.2 K/uL (1.8-8.0); Basophils % 0.3 % (0-1.3); Eosinophils % 1.6 % (0-4.4); Hematocrit 40.3 % (36.0-45.0); Lymphocytes % 11.5 % (15.3-44.8); MPV 7.9 fL (7.6-11.3)
[2018-12-31] MEDS ORDERED: MORPHINE 4 MG/ML SYR ONE (19:39)
[2018-12-31] MEDS ORDERED: ONDANSETRON 4 MG/2 ML VIAL ONE (19:39)
[2018-12-31 19:58] LABS: ALT/SGPT 13 U/L (12-78); AST/SGOT 15 U/L (15-37); Albumin 3.5 g/dL (3.4-5.0); Alkaline Phosphatase 86 U/L (45-117); BUN Blood Urea Nitrogen 6 mg/dL (7-18); Bicarbonate 25 mmol/L (21-32); Bilirubin Direct 0.1 mg/dL (0-0.2); Bilirubin Total 0.4 mg/dL (0.2-1.0); Glucose Level 91 mg/dL (74-106); Lipase 82 U/L (73-393); Potassium 3.8 mmol/L (3.5-5.1); Protein, Total 7.9 g/dL (6.4-8.2); Sodium Level 140 mmol/L (136-145)
[2018-12-31 20:12] LABS: Urine Blood 1+ (NEG); Urine Glucose NEGATIVE (NEG); Urine Protein NEGATIVE (NEG); Urine Specific Gravity 1.025 (1.005-1.030); Urine pH 5.5 (5.0-7.0)
--- NOTE | 2018-12-31 20:50 | RAD REPORT ---
EXAM DESCRIPTION: CT - Stone Protocol - 12/31/2018 8:31 pm CLINICAL HISTORY: Abdominal pain. Vomiting COMPARISON: None. TECHNIQUE: Computed axial tomography of the abdomen pelvis was obtained without oral or IV contrast. Lack of IV and oral contrast limits evaluation of solid organs, bowel, and vessels. Coronal reformat ilan images were obtained and reviewed. All CT scans are performed using dose optimization technique as appropriate and may include automated exposure control or mA/KV adjustment according to patient size. FINDINGS: A renal calculus is not seen. An ureteral calculus is not noted. A bladder calculus is not present. The liver, spleen, pancreas and adrenals appear grossly normal There is no evidence of diverticulitis. The appendix appears normal Cholecystectomy IMPRESSION: Negative for a genitourinary calculus
--- NOTE | 2018-12-31 21:00 | EDPHYS ---
Physician Documentation [facility] Name: Suzi Arrington Age: 38 yrs Sex: Female : 1980 Arrival Date: 12/31/2018 Time: 17:59 Bed 19 Private MD: Raul Byrd ED Physician Leonardo Meyer HPI: 12/31 19:15 This 38 yrs old Female presents to ER via Ambulatory with complaints of jmm Vomiting, Body aches. 19:15 The patient presents to the emergency department with nausea, vomiting, abdominal pain. jmm Onset: The symptoms/episode began/occurred gradually, 2 day(s) ago. Possible causes: unknown. This is a 38 year old female with a history of astham, htn that presents to the ED with complaints of lower abdominal pain, vomiting beginning 2 days ago. Patient denies diarrhea. Patient states pain radiates to the lower back. Patient also complaints of generalized body aches for the patient 2 months. . Historical: - Allergies: 18:11 Iodine; sg 18:11 Motrin; sg - PMHx: 18:11 Asthma; Back pain; chronic URI; Hypertension; sg - PSHx: 18:11 Cholecystectomy; ; sg - Immunization history:: Adult Immunizations not up to date. - Social history:: Smoking status: Patient/guardian denies using tobacco. - Ebola Screening: : Patient negative for fever greater than or equal to 101.5 degrees Fahrenheit, and additional compatible Ebola Virus Disease symptoms Patient denies exposure to infectious person Patient denies travel to an Ebola-affected area in the 21 days before illness onset No symptoms or risks identified at this time. ROS: 19:15 Cardiovascular: Negative for chest pain, palpitations, and edema, Respiratory: Negative jmm for shortness of breath, cough, wheezing, and pleuritic chest pain. 19:15 Constitutional: Positive for body aches. 19:15 Abdomen/GI: Positive for abdominal pain, nausea and vomiting. 19:15 Back: Positive for radiated pain. 19:15 All other systems are negative. Exam: 19:15 Constitutional: This is a well developed, well nourished patient who is awake, alert, jmm and in no acute distress. Head/Face: atraumatic. Eyes: EOMI, no conjunctival erythema appreciated ENT: Moist Mucus Membranes Neck: Trachea midline, Supple Chest/axilla: Normal chest wall appearance and motion. Cardiovascular: Regular rate and rhythm. No edema appreciated Respiratory: Normal respirations, no respiratory distress appreciated 19:15 Abdomen/GI: Inspection: obese Bowel sounds: normal, Palpation: soft, mild abdominal tenderness, in the suprapubic area, right lower quadrant and left lower quadrant. 19:15 Back: ROM is normal, muscle spasms noted to mid lumbar region bilaterally, no cva tenderness. 19:15 Musculoskeletal/extremity: ROM: intact in all extremities. 19:15 Skin: Appearance: Color: normal in color. 19:15 Neuro: Orientation: is normal, Mentation: is normal, Memory: is normal. 19:15 Psych: Behavior/mood is pleasant, cooperative. Vital Signs: 18:21 BP 154 / 94; Pulse 96; Resp 18; Temp 99.2; Pulse Ox 99% on R/A; Weight 111.13 kg; Pain sg 8/10; 21:19 BP 142 / 85; Pulse 79; Resp 19; Temp 98.7(O); Pulse Ox 99% on R/A; Pain 4/10; ed1 MDM: 19:14 Patient medically screened. [facility] 20:58 Data reviewed: vital signs, nurses notes. Counseling: I had a detailed discussion with viridiana the patient and/or guardian regarding: the historical points, exam findings, and any diagnostic results supporting the discharge/admit diagnosis, lab results, radiology results, the need for outpatient follow up, to return to the emergency department if symptoms worsen or persist or if there are any questions or concerns that arise at home. ED course: Patient is alert and non toxic in appearance in the ED. Patient is advised to follow up with GI for further evaluation and otherwise given strict return precautions. Patient understood and agrees with the plan of care. . 12/31 19:14 Order name: Basic Metabolic Panel; Complete Time: 20:06 [facility] 12/31 19:14 Order name: CBC with Diff; Complete Time: 20:06 [facility] 12/31 19:14 Order name: Creatinine for Radiology; Complete Time: 20:06 [facility] 12/31 19:14 Order name: Hepatic Function; Complete Time: 20:06 [facility] 12/31 19:14 Order name: Lipase; Complete Time: 20:06 [facility] 04/12 20:06 Order name: Urine Dipstick--Ancillary (enter results); Complete Time: 20:12 cm6 12/31 19:14 Order name: IV Saline Lock; Complete Time: 19:33 [facility] 12/31 19:14 Order name: Labs collected and sent; Complete Time: 19:33 [facility] 12/31 19:14 Order name: CT Stone Protocol; Complete Time: 20:51 [facility] 12/31 20:06 Order name: Urine --Ancillary (enter results); Complete Time: 20:12 cm6 Administered Medications: 19:31 Drug: Zofran 4 mg Route: IVP; Site: right antecubital; ed1 20:06 Follow up: Response: No adverse reaction; Nausea is decreased ed1 19:32 Drug: morphine 4 mg Route: IVP; Site: right antecubital; ed1 20:06 Follow up: Response: No adverse reaction; Pain is unchanged, physician notified ed1 21:01 Drug: fentaNYL (PF) 50 mcg Route: IVP; Site: right antecubital; ed1 21:19 Follow up: Response: No adverse reaction; Pain is decreased ed1 Disposition: 12/31/18 21:00 Discharged to Home. Impression: Other abdominal pain. - Condition is Stable. - Discharge Instructions: Abdominal Pain, Adult. - Prescriptions for Zofran ODT 4 mg Oral tablet,disintegrating - place 1 tablet by TRANSLINGUAL route every 4-6 hours; 20 tablet. Tylenol- Codeine #3 300-30 mg Oral Tablet - take 1 tablet by ORAL route every 6 hours As needed; 12 tablet. - Medication Reconciliation Form, Thank You Letter, Antibiotic Education, Prescription Opioid Use, Work release form form. - Follow up: Pedro Kincaid MD; When: 2 - 3 days; Reason: Recheck today's complaints, Continuance of care, Re-evaluation by your physician. Addendum: 01/03/2019 08:34 Co-signature as Attending Physician, Leonardo Meyer MD I agree with the assessment and k dr plan of care. Signatures: Dispatcher [employer] EDMS Darinel Damon RN RN sg Rittger, Kevin, MD MD kdr Mickail, Joel, PA PA jmm Riggs, Erika RN RN ed1 Corrections: (The following items were deleted from the chart) 12/31 21:21 21:00 12/31/2018 21:00 Discharged to Home. Impression: Other abdominal pain. Condition ed1 is Stable. Forms are Medication Reconciliation Form, Thank You Letter, Antibiotic Education, Prescription Opioid Use. Follow up: Pedro Kincaid; When: 2 - 3 days; Reason: Recheck today's complaints, Continuance of care, Re-evaluation by your physician. viridiana
--- NOTE | 2018-12-31 21:00 | ER ---
Nurse's Notes [facility] Name: Suzi Arrington Age: 38 yrs Sex: Female : 1980 Arrival Date: 12/31/2018 Time: 17:59 Bed 19 Private MD: Raul Byrd Diagnosis: Other abdominal pain Presentation: 12/31 18:11 Presenting complaint: Patient states: Nausea, vomiting and body aches that are sg worsening today. reports body aches are a 10/10 on the pain scale. Transition of care: patient was not received from another setting of care. Onset of symptoms was December 31, 2018. Risk Assessment: Do you want to hurt yourself or someone else? Patient reports no desire to harm self or others. Initial Sepsis Screen: Does the patient meet any 2 criteria? No. Patient's initial sepsis screen is negative. Does the patient have a suspected source of infection? No. Patient's initial sepsis screen is negative. Care prior to arrival: None. 18:11 Method Of Arrival: Ambulatory sg 18:11 Acuity: CARLITOS 3 sg Historical: - Allergies: 18:11 Iodine; sg 18:11 Motrin; sg - PMHx: 18:11 Asthma; Back pain; chronic URI; Hypertension; sg - PSHx: 18:11 Cholecystectomy; ; sg - Immunization history:: Adult Immunizations not up to date. - Social history:: Smoking status: Patient/guardian denies using tobacco. - Ebola Screening: : Patient negative for fever greater than or equal to 101.5 degrees Fahrenheit, and additional compatible Ebola Virus Disease symptoms Patient denies exposure to infectious person Patient denies travel to an Ebola-affected area in the 21 days before illness onset No symptoms or risks identified at this time. Screenin:08 Abuse screen: Denies threats or abuse. Denies injuries from another. Nutritional ed1 screening: No deficits noted. Tuberculosis screening: No symptoms or risk factors identified. Fall Risk None identified. Assessment: 19:08 General: Appears uncomfortable, Behavior is calm, cooperative. Pain: Complains of pain ed1 in abdomen Pain currently is 8 out of 10 on a pain scale. Quality of pain is described as sharp, Pain began 1 day ago. Is continuous. Neuro: Level of Consciousness is awake, alert, obeys commands, Oriented to person, place, time, situation. Cardiovascular: Denies chest pain, Heart tones S1 S2 present. Respiratory: Airway is patent Respiratory effort is even, unlabored, Respiratory pattern is regular, symmetrical, Breath sounds are clear bilaterally. GI: Abdomen is obese, Bowel sounds present X 4 quads. Abd is soft and non tender X 4 quads. Reports lower abdominal pain, nausea, vomiting, Patient currently denies diarrhea. : No signs and/or symptoms were reported regarding the genitourinary system. EENT: No signs and/or symptoms were reported regarding the EENT system. Derm: Skin is intact, is healthy with good turgor, Skin is dry, Skin is normal, Skin temperature is warm. Musculoskeletal: Circulation, motion, and sensation intact. Range of motion: intact in all extremities. 20:05 Reassessment: Patient and/or family updated on plan of care and expected duration. Pain ed1 level reassessed. Patient is alert, oriented x 3, equal unlabored respirations, skin warm/dry/pink. Pt states "The pain is getting worse. I can't even sit still now." Patient states symptoms have not improved. 21:19 Reassessment: Patient appears in no apparent distress at this time. Patient and/or ed1 family updated on plan of care and expected duration. Pain level reassessed. Patient is alert, oriented x 3, equal unlabored respirations, skin warm/dry/pink. Patient states feeling better. Patient states symptoms have improved. Vital Signs: 18:21 BP 154 / 94; Pulse 96; Resp 18; Temp 99.2; Pulse Ox 99% on R/A; Weight 111.13 kg; Pain sg 8/10; 21:19 BP 142 / 85; Pulse 79; Resp 19; Temp 98.7(O); Pulse Ox 99% on R/A; Pain 4/10; ed1 ED Course: 17:59 Patient arrived in ED. mr 17:59 Raul Byrd DO is Private Physician. mr 18:11 Arm band placed on. sg 18:12 Triage completed. sg 18:59 [facility] 18:59 Leonardo Meyer MD is Attending Physician. [facility] 19:08 Prisca Blair, DEWAYNE is Primary Nurse. ed1 19:08 Patient has correct armband on for positive identification. Placed in gown. Bed in low ed1 position. Call light in reach. Side rails up X 1. Pulse ox on. NIBP on. 19:30 Inserted saline lock: 20 gauge in right antecubital area, using aseptic technique. ag4 Blood collected. 19:49 Radiology exam delayed due to test not completed at this time. jg6 20:29 CT completed. Patient tolerated procedure well. Patient moved back from CT. jg6 20:32 CT Stone Protocol In Process Unspecified. EDMS 20:59 Pedro Kincaid MD is Referral Physician. viridiana 21:19 No provider procedures requiring assistance completed. IV discontinued, intact, ed1 bleeding controlled, No redness/swelling at site. Pressure dressing applied. Administered Medications: 19:31 Drug: Zofran 4 mg Route: IVP; Site: right antecubital; ed1 20:06 Follow up: Response: No adverse reaction; Nausea is decreased ed1 19:32 Drug: morphine 4 mg Route: IVP; Site: right antecubital; ed1 20:06 Follow up: Response: No adverse reaction; Pain is unchanged, physician notified ed1 21:01 Drug: fentaNYL (PF) 50 mcg Route: IVP; Site: right antecubital; ed1 21:19 Follow up: Response: No adverse reaction; Pain is decreased ed1 Outcome: 21:00 Discharge ordered by MD. valdemar 21:19 Discharged to home ambulatory, with friend. ed1 21:19 Condition: good 21:19 Discharge instructions given to patient, Instructed on discharge instructions, follow up and referral plans. medication usage, Demonstrated understanding of instructions, follow-up care, medications, Prescriptions given X 2. 21:21 Patient left the ED. ed1 Signatures: Dispatcher [employer] EDMS Darinel Damon, Tapan Arriaza RN, PA PA jmm Rivera, Mary mr Riggs, Erika RN RN ed1 Milli Silva Rodrigo Merida4
[2018-12-31] MEDS ORDERED: FENTANYL CITR 100 MCG/2 ML ONE (21:11)
[2018-12-31 21:58] VITALS: O2SAT 99
[2018-12-31 21:59] VITALS: BP 142/85; TEMP 98.7
== END 2018-12-31 21:21 | disposition home or self-care (01) ==
LOC: ER 17:55
DX: R10.9 Unspecified abdominal pain (principal); I10 Essential (primary) hypertension; Z88.6 Allergy status to analgesic agent; Z91.048 Other nonmedicinal substance allergy status
CPT/HCPCS: 36415; 74176; 76377; 80048; 80076; 81003; 81025; 83690; 85025; 96374; 96375; 99284; J2405; J3010

== ENCOUNTER 2019-01-27 18:39 | Emergency (ER) | payer OTHER, SELFPAY ==
[2019-01-27 20:28] LABS: Urine Blood 1+ (NEG); Urine Glucose NEGATIVE (NEG); Urine Protein 1+ (NEG); Urine Specific Gravity >1.030 (1.005-1.030); Urine pH 5.5 (5.0-7.0)
[2019-01-27 20:39] LABS: Absolute Monocytes 0.6 K/uL (0.1-1.3); Absolute Neutrophil 2.4 K/uL (1.8-8.0); Basophils % 0.7 % (0-1.3); Eosinophils % 0.2 % (0-4.4); Hematocrit 42.4 % (36.0-45.0); Lymphocytes % 24.7 % (15.3-44.8); MPV 8.3 fL (7.6-11.3); Monocytes % 14.8 % (3.3-12.3); RBC Red Blood Cell Count 5.06 M/uL (3.86-4.86)
--- NOTE | 2019-01-27 20:40 | RAD REPORT ---
EXAM DESCRIPTION: CT - Abdomen Pelvis Wo Contrast - 01/27/2019 8:26 pm CLINICAL HISTORY: Abdominal pain. ABD PAIN COMPARISON: Stone Protocol dated 12/31/2018 TECHNIQUE: CT imaging of the abdomen and pelvis was performed without contrast. Solid organ, bowel a nd vascular assessment is limited due to lack of IV and oral contrast. All CT scans are performed using dose optimization technique as appropriate and may include automated exposure control or mA/KV adjustment according to patient size. FINDINGS: The lower lung fuller are clear.Cholecystectomy clips. The liver, spleen, pancreas, adrenal glands and kidneys are within normal limits for a limited non-co ntrast examination. No bowel obstruction, free air, free fluid or abscess. The appendix is normal. The osseous structures are within normal limits. IMPRESSION: No acute intra-abdominal or pelvic findings. A limited non-contrast examination was performed as detailed.
--- NOTE | 2019-01-27 20:42 | RAD REPORT ---
EXAM DESCRIPTION: RAD - Chest Single View - 01/27/2019 8:32 pm CLINICAL HISTORY: Cough;Abdominal distention Chest pain. COMPARISON: Chest Single View dated 07/28/2018; ABDOMEN ACUTE SERIES dated 09/27/2012; CHEST SINGLE VIE W dated 04/13/2008 FINDINGS: Portable technique limits examination quality. The lungs are grossly clear. The heart is normal in size. No displaced fractures. IMPRESSION: No acute intrathoracic process suspected.
[2019-01-27] MEDS ORDERED: FAMOTIDINE 20 MG/2 ML VIAL IV ONE (20:43)
[2019-01-27] MEDS ORDERED: NA CHLORIDE 0.9% 1,000 ML ONE (20:43)
[2019-01-27 20:55] LABS: Protime INR 1.22
[2019-01-27 20:57] LABS: ALT/SGPT 22 U/L (12-78); AST/SGOT 28 U/L (15-37); Albumin 3.4 g/dL (3.4-5.0); Alkaline Phosphatase 69 U/L (45-117); BUN Blood Urea Nitrogen 8 mg/dL (7-18); Bicarbonate 23 mmol/L (21-32); Bilirubin Direct < 0.1 mg/dL (0-0.2); Bilirubin Total 0.2 mg/dL (0.2-1.0); Glucose Level 86 mg/dL (74-106); Lipase 129 U/L (73-393); Magnesium 2.3 mg/dL (1.8-2.4); NT PRO-BNP 10 pg/mL (<125); Potassium 3.6 mmol/L (3.5-5.1); Sodium Level 136 mmol/L (136-145); Troponin (Emerg Dept Use Only) < 0.02 ng/mL (0.0-0.045)
--- NOTE | 2019-01-27 21:06 | ER ---
Nurse's Notes [facility] Name: Suzi Arrington Age: 38 yrs Sex: Female : 1980 Arrival Date: 01/27/2019 Time: 18:46 Bed 5 Private MD: Diagnosis: Vomiting;Diarrhea, unspecified;Abdominal tenderness;Obesity, unspecified Presentation: 01/27 18:47 Presenting complaint: Patient states: i was on antibiotic for a week last week for a hj stomach infection and Thursday night, i started vomiting and diarrhea; reports abd pain; reports fever;. Transition of care: patient was not received from another setting of care. Onset of symptoms was January 27, 2019. Risk Assessment: Do you want to hurt yourself or someone else? Patient reports no desire to harm self or others. Initial Sepsis Screen: Does the patient meet any 2 criteria? No. Patient's initial sepsis screen is negative. Does the patient have a suspected source of infection? No. Patient's initial sepsis screen is negative. Care prior to arrival: None. 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 - Family history:: not pertinent. - Social history:: Smoking status: Patient uses tobacco products. - Ebola Screening: : No symptoms or risks identified at this time. Screenin:41 Abuse screen: Denies threats or abuse. Nutritional screening: No deficits noted. tl2 Tuberculosis screening: No symptoms or risk factors identified. Fall Risk None identified. Assessment: 20:40 General: Appears in no apparent distress. uncomfortable. Pain: Complains of pain in tl2 abdomen. Neuro: Level of Consciousness is awake, alert, obeys commands, Oriented to person, place, time, situation. Cardiovascular: Denies chest pain. Respiratory: Airway is patent Respiratory effort is even, unlabored, Respiratory pattern is regular, symmetrical. GI: Abdomen is obese, Reports intolerance of fluids, intolerance of food, nausea, vomiting. : No signs and/or symptoms were reported regarding the genitourinary system. Derm: Skin is pink, warm \T\ dry. 21:37 Reassessment: will discharge pt after fluids are completed. tl2 22:10 Reassessment: Patient appears in no apparent distress at this time. Patient and/or tl2 family updated on plan of care and expected duration. Pain level reassessed. Patient is alert, oriented x 3, equal unlabored respirations, skin warm/dry/pink. pt verbalized understanding of discharge instructions, need for follow up and prescription usage. Vital Signs: 18:48 BP 141 / 83; Pulse 118; Resp 18; Temp 98.9(O); Pulse Ox 97% on R/A; Weight 130.63 kg; hj Height 5 ft. 5 in. (165.10 cm); Pain 10/10; 22:10 BP 102 / 71; Pulse 87; Resp 17; Pulse Ox 100% on R/A; tl2 18:48 Body Mass Index 47.92 (130.63 kg, 165.10 cm) ED Course: 18:46 Patient arrived in ED. hj 18:48 Triage completed. hj 18:49 Arm band placed on right wrist. hj 20:06 Melquiades Wiley MD is Attending Physician. [facility] 20:15 Inserted saline lock: 22 gauge in right antecubital area, using aseptic technique. tl2 Blood collected. By Jimena Malagon RN. 20:16 Vilma Armendariz, DEWAYNE is Primary Nurse. lp1 20:[address] via wheelchair. nj 20:25 CT completed. Patient tolerated procedure well. Patient moved back from CT. nj 20:26 CT Abd/Pelvis - Without Cont: no iv no oral In Process Unspecified. EDMS 20:32 XRAY Chest (1 view) In Process Unspecified. EDMS 21:41 Patient has correct armband on for positive identification. Placed in gown. Bed in low tl2 position. Call light in reach. Side rails up X 1. Adult w/ patient. 22:10 No provider procedures requiring assistance completed. IV discontinued, intact, tl2 bleeding controlled, No redness/swelling at site. Pressure dressing applied. Administered Medications: 20:48 Drug: NS 0.9% 1000 ml Route: IV; Rate: 1 bolus; Site: right antecubital; tl2 20:48 Drug: Pepcid 20 mg Route: IVP; Site: right antecubital; tl2 21:30 Follow up: Response: No adverse reaction; Pain is decreased tl2 Outcome: 21:06 Discharge ordered by . gold 22:20 Discharged to home ambulatory, with family. tl2 22:20 Condition: stable 22:20 Discharge instructions given to patient, family, Instructed on discharge instructions, follow up and referral plans. medication usage, Demonstrated understanding of instructions, follow-up care, medications, Prescriptions given X 3. 22:27 Patient left the ED. tl2 Signatures: Dispatcher [employer] EDMS Melquiades Wiley MD MD cha Pena, Laura, RN RN lp1 Rj Dickinson RN RN hj Knox, Taylor, RN RN tl2 Leoncio Muhammad Corrections: (The following items were deleted from the chart) 18:50 18:48 130.63 kg; Height 5 ft. 5 in.; BMI: 47.9; Pain 10/10; hj hj 18:50 18:48 Pulse 118bpm; Resp 18bpm; Pulse Ox 97% RA; Temp 98.9F Oral; 130.63 kg; Height 5 hj ft. 5 in.; BMI: 47.9; Pain 10/10; hj 01/28 01:34 05/09 20:15 Inserted saline lock: 20 gauge in right antecubital area, using aseptic tl2 technique. Blood collected. By Jimena Malagon RN lp1 01/28 01:35 01:34 Discharged to home ambulatory, with family, tl2 tl2 01:35 01:34 Condition: stable tl2 tl2 01:35 01:34 Discharge instructions given to patient, family, Instructed on discharge tl2 instructions, follow up and referral plans. medication usage, Demonstrated understanding of instructions, follow-up care, medications, Prescriptions given X 3, tl2
--- NOTE | 2019-01-27 21:06 | EDPHYS ---
Physician Documentation [facility] Name: Suzi Arrington Age: 38 yrs Sex: Female : 1980 Arrival Date: 01/27/2019 Time: 18:46 Bed 5 Private MD: ED Physician Melquiades Wiley HPI: 01/27 20:11 This 38 yrs old Female presents to ER via Ambulatory with complaints of gold Fever, Vomiting, Diarrhea. 20:11 The patient reports fever, not measured (subjective). Onset: The symptoms/episode gold began/occurred 2 day(s) ago. Modifying factors: there are no obvious modifying factors. Associated signs and symptoms: Pertinent positives: abdominal pain. Severity of symptoms: At their worst the symptoms were mild in the emergency department the symptoms are unchanged. The patient has not experienced similar symptoms in the past. 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 - Family history:: not pertinent. - Social history:: Smoking status: Patient uses tobacco products. - Ebola Screening: : No symptoms or risks identified at this time. ROS: 20:11 Eyes: Negative for injury, pain, redness, and discharge, ENT: Negative for injury, gold pain, and discharge, Neck: Negative for injury, pain, and swelling, Cardiovascular: Negative for chest pain, palpitations, and edema, Back: Negative for injury and pain, : Negative for injury, bleeding, discharge, and swelling, MS/Extremity: Negative for injury and deformity, Skin: Negative for injury, rash, and discoloration, Neuro: Negative for headache, weakness, numbness, tingling, and seizure, Psych: Negative for depression, anxiety, suicide ideation, homicidal ideation, and hallucinations, Allergy/Immunology: Negative for hives, rash, and allergies, Endocrine: Negative for neck swelling, polydipsia, polyuria, polyphagia, and marked weight changes. 20:11 Constitutional: Positive for body aches, fever. 20:11 Respiratory: Negative for cough. 20:11 Abdomen/GI: Positive for abdominal pain, nausea and vomiting, of the left upper quadrant. Exam: 20:11 Constitutional: This is a well developed, well nourished patient who is awake, alert, gold and in no acute distress. Head/Face: Normocephalic, atraumatic. Eyes: Pupils equal round and reactive to light, extra-ocular motions intact. Lids and lashes normal. Conjunctiva and sclera are non-icteric and not injected. Cornea within normal limits. Periorbital areas with no swelling, redness, or edema. ENT: Nares patent. No nasal discharge, no septal abnormalities noted. Tympanic membranes are normal and external auditory canals are clear. Oropharynx with no redness, swelling, or masses, exudates, or evidence of obstruction, uvula midline. Mucous membranes moist. Neck: Trachea midline, no thyromegaly or masses palpated, and no cervical lymphadenopathy. Supple, full range of motion without nuchal rigidity, or vertebral point tenderness. No Meningismus. Chest/axilla: Normal chest wall appearance and motion. Nontender with no deformity. No lesions are appreciated. Cardiovascular: Regular rate and rhythm with a normal S1 and S2. No gallops, murmurs, or rubs. Normal PMI, no JVD. No pulse deficits. Respiratory: Lungs have equal breath sounds bilaterally, clear to auscultation and percussion. No rales, rhonchi or wheezes noted. No increased work of breathing, no retractions or nasal flaring. Back: No spinal tenderness. No costovertebral tenderness. Full range of motion. Female : Normal external genitalia. Skin: Warm, dry with normal turgor. Normal color with no rashes, no lesions, and no evidence of cellulitis. MS/ Extremity: Pulses equal, no cyanosis. Neurovascular intact. Full, normal range of motion. Neuro: Awake and alert, GCS 15, oriented to person, place, time, and situation. Cranial nerves II-XII grossly intact. Motor strength 5/5 in all extremities. Sensory grossly intact. Cerebellar exam normal. Normal gait. Psych: Awake, alert, with orientation to person, place and time. Behavior, mood, and affect are within normal limits. 20:11 Abdomen/GI: Inspection: abdomen appears normal, Bowel sounds: normal, Palpation: mild abdominal tenderness, in the left upper quadrant, Liver: no appreciated palpable abnormalities, Hernia: not appreciated. Vital Signs: 18:48 BP 141 / 83; Pulse 118; Resp 18; Temp 98.9(O); Pulse Ox 97% on R/A; Weight 130.63 kg; hj Height 5 ft. 5 in. (165.10 cm); Pain 10/10; 22:10 BP 102 / 71; Pulse 87; Resp 17; Pulse Ox 100% on R/A; tl2 18:48 Body Mass Index 47.92 (130.63 kg, 165.10 cm) hj MDM: 20:06 Patient medically screened. [facility] 20:11 Data reviewed: vital signs, nurses notes, lab test result(s), EKG, radiologic studies, [facility] CT scan, plain films. 01/27 20:11 Order name: Basic Metabolic Panel [facility] 01/27 20:11 Order name: CBC with Diff [facility] 01/27 20:11 Order name: LFT's [facility] 01/27 20:11 Order name: Magnesium [facility] 01/27 20:11 Order name: NT PRO-BNP [facility] 01/27 20:11 Order name: PT-INR [facility] 01/27 20:11 Order name: Troponin (emerg Dept Use Only); Complete Time: 21:03 [facility] 01/27 20:11 Order name: Lipase; Complete Time: 21:03 [facility] 01/27 20:11 Order name: Urine Culture [facility] 01/27 20:12 Order name: Basic Metabolic Panel; Complete Time: 21:03 [facility] 01/27 20:12 Order name: CBC with Automated Diff; Complete Time: 21:03 [facility] 01/27 20:12 Order name: Liver (Hepatic) Function; Complete Time: 21:03 [facility] 01/27 20:12 Order name: Magnesium; Complete Time: 21:03 [facility] 01/27 20:12 Order name: NT PRO-BNP; Complete Time: 21:03 [facility] 01/27 20:11 Order name: XRAY Chest (1 view); Complete Time: 21:03 [facility] 01/27 20:11 Order name: EKG; Complete Time: 20:12 [facility] 01/27 20:11 Order name: Cardiac monitoring; Complete Time: 20:23 [facility] 01/27 20:11 Order name: EKG - Nurse/Tech; Complete Time: 20:48 [facility] 01/27 20:11 Order name: IV Saline Lock; Complete Time: 20:23 [facility] 01/27 20:11 Order name: Labs collected and sent; Complete Time: 20: [facility] 01/27 20:11 Order name: O2 Per Protocol; Complete Time: 20:23 [facility] 01/27 20:11 Order name: O2 Sat Monitoring; Complete Time: 20:23 [facility] 01/27 20:11 Order name: CT Abd/Pelvis - Without Cont: no iv no oral; Complete Time: 21:03 [facility] 01/27 20:11 Order name: Urine Dipstick-Ancillary (obtain specimen); Complete Time: 20:23 [facility] 01/27 20:12 Order name: Protime (+INR); Complete Time: 21:03 [facility] 01/27 20:15 Order name: Urine Dipstick--Ancillary (enter results); Complete Time: 21:03 mw2 01/27 20:15 Order name: Urine --Ancillary (enter results); Complete Time: 21:03 mw2 Administered Medications: 20:48 Drug: NS 0.9% 1000 ml Route: IV; Rate: 1 bolus; Site: right antecubital; tl2 20:48 Drug: Pepcid 20 mg Route: IVP; Site: right antecubital; tl2 21:30 Follow up: Response: No adverse reaction; Pain is decreased tl2 Disposition: 01/27/19 21:06 Discharged to Home. Impression: Vomiting, Diarrhea, unspecified, Abdominal tenderness, Obesity, unspecified. - Condition is Stable. - Discharge Instructions: Abdominal Pain, Adult, Food Choices to Help Relieve Diarrhea, Adult, Diarrhea, Adult, Nausea and Vomiting, Adult, Nausea and Vomiting, Adult, [id number], Abdominal Pain, Adult, [id number], Diarrhea, Adult, [id number]. - Prescriptions for Bentyl 20 mg Oral Tablet - take 1 tablet by ORAL route every 6 hours As needed; 20 tablet. Pepcid 20 mg Oral Tablet - take 1 tablet by ORAL route every 12 hours for 10 days; 20 tablet. Zofran 4 mg Oral Tablet - take 1 tablet by ORAL route every 12 hours As needed; 20 tablet. - Medication Reconciliation Form, Thank You Letter, Antibiotic Education, Prescription Opioid Use form. - Follow up: Private Physician; When: 2 - 3 days; Reason: Recheck today's complaints, Continuance of care, Re-evaluation by your physician. - Problem is new. - Symptoms have improved. Signatures: Dispatcher [employer] EDUT Melquiades Wiley MD MD cha Joaquin, Henry RN RN Jimena Malagon RN RN tl2 Corrections: (The following items were deleted from the chart) 22:27 21:06 01/27/2019 21:06 Discharged to Home. Impression: Vomiting; Diarrhea, unspecified; tl2 Abdominal tenderness; Obesity, unspecified. Condition is Stable. Forms are Medication Reconciliation Form, Thank You Letter, Antibiotic Education, Prescription Opioid Use. Follow up: Private Physician; When: 2 - 3 days; Reason: Recheck today's complaints, Continuance of care, Re-evaluation by your physician. Problem is new. Symptoms have improved. gold
[2019-01-27 22:44] VITALS: BP 141/83; TEMP 98.9; O2SAT 97
--- NOTE | 2019-01-28 07:12 | EKG ---
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
== END 2019-01-27 22:27 | disposition home or self-care (01) ==
LOC: ER 18:39
DX: R10.9 Unspecified abdominal pain (principal); R11.10 Vomiting, unspecified; R19.7 Diarrhea, unspecified; E66.9 Obesity, unspecified; Z68.42 Body mass index [BMI] 45.0-49.9, adult; J45.909 Unspecified asthma, uncomplicated; I10 Essential (primary) hypertension; Z88.6 Allergy status to analgesic agent; Z88.8 Allergy status to other drugs, medicaments and biological substances; Z72.0 Tobacco use
CPT/HCPCS: 36415; 71045; 74176; 80048; 80076; 81003; 81025; 83690; 83735; 83880; 84484; 85025; 85610; 87086; 87088; 93005; 96374; 99284; J7030

== ENCOUNTER 2022-04-18 15:34 | Emergency (ER) | payer OTHER, SELFPAY ==
[2022-04-18] MEDS ORDERED: LEVALBUTEROL 1.25 MG/3 ML NEB ONE (16:25)
--- NOTE | 2022-04-18 17:07 | RAD REPORT ---
EXAM DESCRIPTION: RAD - Chest Single View - 04/18/2022 5:00 pm CLINICAL HISTORY: COUGH Chest pain. COMPARISON: Chest Single View dated 01/27/2019; Chest Single View dated 07/28/2018; ABDOMEN ACUTE SERIE S dated 09/27/2012; CHEST SINGLE VIEW dated 04/13/2008 FINDINGS: Portable technique limits examination quality. Mild interstitial opacities bilaterally suggests a viral infection or reactive airway disease. The he art is normal in size. No displaced fractures.
--- NOTE | 2022-04-18 18:15 | EDPHYS ---
Physician Documentation [facility] Name: Suzi Arrington Age: 41 yrs Sex: Female : 1980 Arrival Date: 04/18/2022 Time: 15:36 Bed 5 Private MD: SU Physician Melquiades Wiley HPI: 04/18 16:00 This 41 yrs old Female presents to ER via Ambulatory with complaints of Breathing jh7 Difficulty. 16:00 The patient has shortness of breath When coughing. Onset: The symptoms/episode jh7 began/occurred 2 week(s) ago. Associated signs and symptoms: Pertinent positives: productive cough, Pertinent negatives: chest pain, dizziness, fever. Productive cough, shortness of breath, and chest tightness after coughing for the past 2 weeks. Reports a history of diabetes. States that she has been taking Mucinex at home. History of asthma and hypertension.. Historical: - Allergies: 15:59 Iodine; ll1 15:59 Motrin; ll1 15:59 soap; ll1 16:06 Amoxicillin; iw 16:06 Aspirin; iw - PMHx: 15:59 Asthma; Back pain; chronic URI; Hypertension; ll1 - Immunization history:: Adult Immunizations up to date. - Social history:: Smoking status: Patient denies any tobacco usage or history of. ROS: 16:00 Constitutional: Negative for fever, chills, and weight loss, ENT: Negative for injury, jh7 pain, and discharge, Neck: Negative for injury, pain, and swelling, Cardiovascular: Negative for chest pain, palpitations, and edema, Abdomen/GI: Negative for abdominal pain, nausea, vomiting, diarrhea, and constipation, Back: Negative for injury and pain, Skin: Negative for injury, rash, and discoloration, Neuro: Negative for headache, weakness, numbness, tingling, and seizure. 16:00 Respiratory: Positive for cough, shortness of breath, on exertion. Negative for hemoptysis, orthopnea, wheezing. 16:00 All other systems are negative. Exam: 16:00 Constitutional: This is a well developed, well nourished patient who is awake, alert, jh7 and in no acute distress. 16:00 ENT: Nares patent. No nasal discharge, no septal abnormalities noted. Tympanic membranes are normal and external auditory canals are clear. Oropharynx with no redness, swelling, or masses, exudates, or evidence of obstruction, uvula midline. Mucous membranes moist. Cardiovascular: Regular rate and rhythm with a normal S1 and S2. No gallops, murmurs, or rubs. Normal PMI, no JVD. No pulse deficits. Abdomen/GI: Soft, non-tender, with normal bowel sounds. No distension or tympany. No guarding or rebound. No evidence of tenderness throughout. Back: No spinal tenderness. No costovertebral tenderness. Full range of motion. Skin: Warm, dry with normal turgor. Normal color with no rashes, no lesions, and no evidence of cellulitis. MS/ Extremity: Pulses equal, no cyanosis. Neurovascular intact. Full, normal range of motion. Neuro: Awake and alert, GCS 15, oriented to person, place, time, and situation. Motor strength 5/5 in all extremities. Sensory grossly intact. Normal gait. 16:00 Respiratory: the patient does not display signs of respiratory distress, Respirations: normal, Breath sounds: decreased breath sounds, that are mild, Respiratory rate: 18 Persistent cough noted on exam. Vital Signs: 16:05 BP 149 / 96; Pulse 80; Resp 20 S; Pulse Ox 99% on R/A; Weight 139.25 kg; Height 5 ft. 5 iw in. (165.10 cm); Pain 8/10; 16:05 Body Mass Index 51.09 (139.25 kg, 165.10 cm) iw MDM: 15:58 Patient medically screened. [facility] 18:18 Data reviewed: vital signs, nurses notes, lab test result(s), radiologic studies, [facility] films. Data interpreted: Pulse oximetry: is 99 %. Interpretation: normal. Counseling: I had a detailed discussion with the patient and/or guardian regarding: the historical points, exam findings, and any diagnostic results supporting the discharge/admit diagnosis, to return to the emergency department if symptoms worsen or persist or if there are any questions or concerns that arise at home, Informed by lab that COVID test was negative. 04/18 16:15 Order name: SARS-COV-2 RT PCR (Document "Date of Onset" if Symptomatic); Complete Time: eb 18:19 04/18 16:09 Order name: Chest Single View XRAY; Complete Time: 17:11 [facility] Administered Medications: 16:23 Drug: Xopenex (levalbuterol) (3) 1.25 mg Route: Inhalation; hb Disposition Summary: 04/18/22 18:14 Discharge Ordered Location: Home [facility] Problem: [facility] Symptoms: have improved [facility] Condition: Stable [facility] Diagnosis - Acute bronchitis, unspecified [facility] Followup: [facility] - With: Private Physician - When: 2 - 3 days - Reason: Recheck today's complaints Discharge Instructions: - Discharge Summary Sheet [facility] - Acute Bronchitis, Adult [facility] Forms: - Medication Reconciliation Form [facility] - Thank You Letter [facility] Prescriptions: - Bromfed DM 2-30-10 mg/5 mL Oral syrup - take 10 milliliter by ORAL route every 4 hours As needed; 240 milliliter; [facility] Refills: 0, Product Selection Permitted - ProAir HFA 90 mcg/actuation Inhalation HFA aerosol inhaler - inhale 2 puff by INHALATION route every 4-6 hours; 1 Inhaler; Refills: 0, [facility] Product Selection Permitted - Medrol (Chaitanya) 4 mg Oral Tablets, Dose Pack - take 1 tablet by ORAL route as directed - follow package instructions; 1 [facility] packet; Refills: 0, Product Selection Permitted Signatures: Dispatcher [employer] EDMelquiades Whittington MD MD cha Williams, Irene, RN RN iw Baxter, Heather, RN RN Franklin Benjamin RN RN ll1 [place]te Rg, STOVE FITTER [place] [id number]
--- NOTE | 2022-04-18 18:15 | ER ---
Nurse's Notes [facility] Name: Suzi Arrington Age: 41 yrs Sex: Female : 1980 Arrival Date: 04/18/2022 Time: 15:36 Bed 5 Private MD: Diagnosis: Acute bronchitis, unspecified Presentation: 04/18 16:05 Chief complaint: Patient states: cough, SOB and pain when she coughs X 2 weeks, no iw fever, taking mucinex. Coronavirus screen: Client presents with at least one sign or symptom that may indicate coronavirus-19. Ebola Screen: Patient negative for fever greater than or equal to 101.5 degrees Fahrenheit, and additional compatible Ebola Virus Disease symptoms Patient denies exposure to infectious person. Patient denies travel to an Ebola-affected area in the 21 days before illness onset. No symptoms or risks identified at this time. Initial Sepsis Screen: Does the patient meet any 2 criteria? No. Patient's initial sepsis screen is negative. Does the patient have a suspected source of infection? No. Patient's initial sepsis screen is negative. Risk Assessment: Do you want to hurt yourself or someone else? Patient reports no desire to harm self or others. Onset of symptoms was April 04, 2022. 16:05 Method Of Arrival: Ambulatory iw 16:05 Acuity: CARLITOS 4 iw Historical: - Allergies: 15:59 Iodine; ll1 15:59 Motrin; ll1 15:59 soap; ll1 16:06 Amoxicillin; iw 16:06 Aspirin; iw - PMHx: 15:59 Asthma; Back pain; chronic URI; Hypertension; ll1 - Immunization history:: Adult Immunizations up to date. - Social history:: Smoking status: Patient denies any tobacco usage or history of. Screenin:31 Abuse screen: Denies threats or abuse. Denies injuries from another. Nutritional hb screening: No deficits noted. Tuberculosis screening: No symptoms or risk factors identified. Fall Risk None identified. Assessment: 16:15 General: Appears in no apparent distress. Pain: Pain currently is 8 out of 10 on a pain hb scale. Neuro: Level of Consciousness is awake, alert, obeys commands, Oriented to person, place, time, situation. Cardiovascular: Patient's skin is warm and dry. Respiratory: Respiratory effort is even, unlabored, Respiratory pattern is regular, symmetrical. GI: No signs and/or symptoms were reported involving the gastrointestinal system. : No signs and/or symptoms were reported regarding the genitourinary system. EENT: No signs and/or symptoms were reported regarding the EENT system. Derm: Skin is pink, warm \T\ dry. Musculoskeletal: No signs and/or symptoms reported regarding the musculoskeletal system. 17:32 Reassessment: Patient appears in no apparent distress at this time. Patient and/or hb family updated on plan of care and expected duration. Pain level reassessed. Patient is alert, oriented x 3, equal unlabored respirations, skin warm/dry/pink. Vital Signs: 16:05 BP 149 / 96; Pulse 80; Resp 20 S; Pulse Ox 99% on R/A; Weight 139.25 kg; Height 5 ft. 5 iw in. (165.10 cm); Pain 8/10; 16:05 Body Mass Index 51.09 (139.25 kg, 165.10 cm) ED Course: 15:36 Patient arrived in ED. rg4 15:45 Ute Rg FNP is PHCP. jh7 15:45 Melquiades Wiley MD is Attending Physician. 7 15:58 Arm band placed on Patient placed in an exam room, on a stretcher. 1 16:06 Triage completed. iw 16:09 Danitza Miller, RN is Primary Nurse. hb 17:01 Chest Single View XRAY In Process Unspecified. EDMS 17:31 Patient has correct armband on for positive identification. hb 18:38 No provider procedures requiring assistance completed. Patient did not have IV access hb during this emergency room visit. Administered Medications: 16:23 Drug: Xopenex (levalbuterol) (3) 1.25 mg Route: Inhalation; hb Outcome: 18:14 Discharge ordered by . [facility] 18:38 Discharged to home ambulatory. hb 18:38 Condition: stable 18:38 Discharge instructions given to patient, Instructed on discharge instructions, follow up and referral plans. medication usage, Demonstrated understanding of instructions, follow-up care, medications, Prescriptions given X 3. 18:38 Patient left the ED. hb Signatures: Dispatcher [employer] EDMT Yvette Orozco RN RN Danitza Miller RN RN Noemi Silva rg4 Franklin Benjamin RN RN 1 Ute Rg, SALES COUNSELOR SALES COUNSELOR jh7
[2022-04-18 19:22] VITALS: BP 149/96; O2SAT 99
== END 2022-04-18 18:38 | disposition home or self-care (01) ==
LOC: ER 15:34
DX: J20.9 Acute bronchitis, unspecified (principal); Z20.822 Contact with and (suspected) exposure to COVID-19
CPT/HCPCS: 71045; 99284; U0003